=== PATIENT | female | born 1950 | race Caucasian/White ===

== ENCOUNTER 2017-02-17 11:41 | Inpatient (IN) | payer MEDICARE, OTHER ==
--- NOTE | ~2017-02-17 | PUL ---
[address] [place]. [address] NAME: CHRISTIAN AQUINO : 50 STATUS : ADM IN PAT#: [id number] AGE: 67 ADM/REG DATE : 02/17/17 MR#: [id number] REPORT SERV DATE: 02/23/17 DICTATED BY: LÁZARO LORENZANA DATE: 02/23/17 REPORT STATUS : Draft TRANSCRIBED BY: MODL DATE: 02/23/17 PULMONARY FUNCTION TEST PROCEDURE: Nocturnal oximetry study. DESCRIPTION: This is a nocturnal oximetry study performed initially on room air on 02/20/2017 at 11:34 p.m., ending on 02/21/2017 at 05:54 a.m. There was 6 hours 19 minutes and 48 seconds of recording time. The patient started out on room air. However, had to get placed on 4 L/minute of oxygen to keep oxygen saturations up. Average heart rate was 51 with a low of 42 and a high of 63. Average O2 saturation 93.6% with a low of 83%. Time below 88% was 5 minutes 18 seconds. Oxygen desaturation index was only 4.1. IMPRESSION: Abnormal oximetry study showing significant oxygen desaturation with time below 88% greater than 5 minutes, qualifying for nocturnal oxygen. Rule out secondary causes if appropriate. This does not rule out sleep apnea, so this is of concern then this needs to be evaluated as an outpatient with sleep study. 4 L/minute of oxygen was adequate to control the desaturations. CEP/JENNIFER Lázaro Lorenzana DO / [id number] CC: Patrice Tolentino
--- NOTE | ~2017-02-17 | DS ---
Discharge Summary [facility] [address] [place]. [address] NAME: CHRISTIAN AQUINO : 50 STATUS : DIS IN PAT#: [id number] AGE: 67 ADM/REG DATE : 02/17/17 MR#: [id number] REPORT SERV DATE: 02/24/17 DICTATED BY: GARY DEVLIN DATE: 02/23/17 REPORT STATUS : Draft TRANSCRIBED BY: MODL DATE: 02/23/17 ADMISSION DATE: 02/17/2017 DISCHARGE DATE: 02/23/2017 DISCHARGE DIAGNOSES: 1. Hypoxic respiratory failure. 2. Pulmonary hypertension and aortic stenosis. 3. Obstructive sleep apnea on current CPAP therapy nightly. 4. Urinary tract infection, Escherichia coli, treated. 5. Diarrhea, resolving. 6. Morbid obesity. 7. Paroxysmal atrial fibrillation. 8. Hypothyroidism, most recent TSH 5.400. 9. Chronic lymphedema. 10.Hypertension. DISCHARGE MEDICATIONS: Eliquis 5 mg twice a day, Lotensin 40 mg daily, Bumex 1 mg daily, diltiazem ER 300 mg at bedtime, Zetia 10 mg daily, EZFE 200 mg daily, flecainide 100 mg every 12 hours, Flonase nasal spray one to two sprays nasally daily, levothyroxine 112 mcg daily, Singulair 10 mg at bedtime, Pravachol 40 mg daily, albuterol nebulizers twice, Spiriva 18 mcg capsule inhaled daily, Dulera 200/5 two puffs inhaled twice a day, Pulmicort one puff inhaled twice a day, Imodium p.r.n. for diarrhea, Librax p.r.n. for IBS, probiotic [id number] daily, FiberCon tab daily, and hydrocodone APAP 5/325 one tablet every four hours p.r.n. for pain #20 with no refills. HISTORY OF PRESENT ILLNESS: This is a pleasant 67-year-old white female, who originally presented with worsening shortness of breath. Please see initial H and P of Dr. Stephenson. As the patient was admitted to the Hospitalist Service for further evaluation and treatment. She was initially given supportive care with oxygen and nebulizer therapy. Lab work was ordered and followed and she was monitored closely. CONSULTANTS DURING THIS ADMISSION: A nocturnal oximetry study read by surgical assistant certified Dr. Lázaro Lorenzana that was abnormal and showed significant oxygen desaturation. PROCEDURES AND IMAGING DURING THIS ADMISSION: Initial CTA of the chest that showed no evidence of pulmonary embolus, small upper [id number] enlarged left periaortic lymph node measuring 10 mm short axis diameter of uncertain clinical significance, some mildly enlarged pulmonary artery consistent with CT evidence of pulmonary arterial hypertension, and an echocardiogram that showed ejection fraction of 60% with mild aortic stenosis. CONTINUATION OF HOSPITAL COURSE: The patient was initially seen by Hospitalist Dr. Hector Mckinney, where the patient was continued on her supportive care, nebulizers, oxygen, and was also given some more aggressive IV diuresis, which had initially been IV Lasix, and this was changed to IV Bumex. The patient did tolerate this diuresis and was switched over to p.o. Bumex as she continued to diurese. She has problems with chronic lymphedema and her legs were wrapped during this admission as well which seemed to help alleviate some of the Discharge Summary [address] [address] NAME: CHRISTIAN AQUINO : 50 STATUS : DIS IN PAT#: [id number] AGE: 67 ADM/REG DATE : 02/17/17 MR#: [id number] REPORT SERV DATE: 02/24/17 DICTATED BY: GARY DEVLIN DATE: 02/23/17 REPORT STATUS : Draft TRANSCRIBED BY: JENNIFER DATE: 02/23/17 swelling. She began to feel some better and less short of breath, however, with exertion the patient required oxygen and she did have an abnormal overnight oximetry test. As the patient is currently on CPAP therapy, she will need home O2 at discharge and with outpatient pulmonary follow up. She did grow E coli in her urine which was treated with antibiotics. She did have some episodes of diarrhea and did have a C difficile. Stool check which was negative during this admission as well. The patient continued to do well, was able to be mobilized to a chair, and ambulated in the hallway, and was felt safe to discharge home with [facility], and home O2 on 02/23/2017 with the above medication regimen. She has been instructed to follow up with her primary care in four to six weeks. Follow up with the surgical assistant certified in three to four weeks. She has to recheck for TSH through her primary care's office. I have decreased her Cardizem dosage down, given that during this admission, her heart rates have been in the mid 50 range, although asymptomatic, I have titrated her overall Cardizem dosage down, and prescription has been written for this. The patient was in agreement with the plan going forward. Questions were answered extensively at bedside. Please note, greater than 30 minutes was spent on this discharge for medication, teaching, followup planning, and further disposition. JENNY/JENNIFER Gary Devlin NP / [id number] CC: Patrice Tolentino AMY
--- NOTE | ~2017-02-17 | SLEEP ---
[facility] [address] [address] NAME: CHRISTIAN AQUINO : 50 STATUS : ADM IN PAT#: [id number] AGE: 67 ADM/REG DATE : 02/17/17 MR#: [id number] REPORT SERV DATE: 02/21/17 DICTATED BY: LÁZARO LORENZANA DATE: 02/21/17 REPORT STATUS : Draft TRANSCRIBED BY: MODL DATE: 02/21/17 PROCEDURE: Nocturnal oximetry study. DESCRIPTION: This is a nocturnal oximetry study performed on 02/20/2017 starting at 11:34 p.m. ending 02/21/2017 at 5:54 a.m. Total recording time was 6 hours 19 minutes 48 seconds. Average heart rate 51 with a low of 42 and a high of 63. Average oxygen saturation was 93.6% with a low of 83%. The patient was placed on 4 liters of oxygen just before 1:00 a.m. to keep oxygen greater than or equal to 80%. The patient had a time below 88% of 5 minutes 18 seconds. Oxygen desaturation index was less than 5. IMPRESSION: This is an abnormal oximetry study showing desaturation on room air, but the patient was subsequently placed on 4 liters/minute. CEP/JENNIFER Lázaro Lorenzana DO / [id number] CC: Patrice Tolentino AMY
--- NOTE | ~2017-02-17 | HP ---
History And Physical [address] [place]. [address] NAME: CHRISTIAN AQUINO : 50 STATUS : ADM IN PAT#: [id number] AGE: 67 ADM/REG DATE : 02/17/17 MR#: [id number] REPORT SERV DATE: 02/17/17 DICTATED BY: MAGY SHEEHAN DATE: 02/17/17 REPORT STATUS : Draft TRANSCRIBED BY: JENNIFER DATE: 02/17/17 DATE OF ADMISSION: 02/17/2017 CHIEF COMPLAINT: Shortness of breath. HISTORY OF PRESENT ILLNESS: This is a 67-year-old female with medical history of morbid obesity, obstructive sleep apnea, on CPAP at home, mild aortic stenosis, irritable bowel syndrome, and atrial fibrillation, on Eliquis, who presented to the hospital with complaints of worsening shortness of breath. The patient reports that at baseline, she does have intermittent shortness of breath, but able to perform activities of daily living, able to walk around without meaningful shortness of breath. However, in the last one month, she has noticed progressive worsening shortness of breath. In the last couple of weeks, she has become short of breath both on exertion and at rest. There is also associated wheezing and also bilateral lower extremity swelling. The patient also reports significant feeling of excessive weight gain. She notes that she takes her Lasix as prescribed, but notes that her Lasix may not have been working to get rid of the water fluid as effective as it used to be. The patient denies any chest pain, denies any PND, denies any orthopnea, and she denies any palpitations, presyncopal or syncopal episodes. She denies any cough. She denies any fever or chills. She also denies any history of contact with any patient with acute febrile illness. The patient also denies any recent travel, previous DVT, but reports that she has been more sedentary in the last few weeks due to the worsening shortness of breath. PAST MEDICAL HISTORY: 1. Obstructive sleep apnea, on CPAP machine. 2. Hypercholesterolemia. 3. History of murmur likely related to aortic stenosis. 4. Asthma. 5. Hypertension. 6. Atrial fibrillation. 7. Hypothyroidism. 8. Osteoarthritis. PAST SURGICAL HISTORY: 1. Tonsillectomy in 1998. 2. Cholecystectomy in 1999. 3. Right knee arthroscopy in 2004. 4. Bilateral total knee replacement in 2003. 5. Right hip replacement in 2004. ALLERGIES: 1. NSAID. 2. PENICILLIN. 3. CEFACLOR. 4. AUGMENTIN. 5. AZITHROMYCIN. 6. AMOXICILLIN. History And Physical [address] [address] NAME: CHRISTIAN AQUINO : 50 STATUS : ADM IN PAT#: [id number] AGE: 67 ADM/REG DATE : 02/17/17 MR#: [id number] REPORT SERV DATE: 02/17/17 DICTATED BY: MAGY SHEEHAN DATE: 02/17/17 REPORT STATUS : Draft TRANSCRIBED BY: JENNIFER DATE: 02/17/17 MEDICATIONS: 1. Bumex 1 mg p.o. daily. 2. Flecainide 100 mg p.o. every 12 hours. 3. Eliquis 5 mg p.o. b.i.d. 4. Diltiazem extended release 360 mg cap at bedtime. 5. Pravachol 40 mg p.o. daily. 6. Zetia 10 mg p.o. daily. 7. Lotensin 40 mg p.o. daily. 8. Levothyroxine 112 mcg p.o. daily. 9. Singulair 10 mg p.o. daily. 10.Budesonide one puff b.i.d. 11.Albuterol one puff b.i.d. 12.Lorazepam 2 mg p.o. p.r.n. for diarrhea due to IBS. 13.Librax cap p.r.n. for IBS. 14.Probiotic caps one p.o. daily as needed. 15.FiberCon one tab p.o. twice a day. 16.Flonase nasal spray 50 mcg two sprays daily. 17.Iron polysaccharide 22 mcg p.o. daily. SOCIAL HISTORY: Denies smoking cigarettes, drinking alcohol, or illicit drug use, but attached to secondhand smoke exposure. Her smokes heavily in the house. FAMILY HISTORY: History of heart failure in her father and a sister. Mother of CVA. No history of cancer in the family. REVIEW OF SYSTEMS: Twelve-point review of systems conducted, positive findings as per HPI. All other systems essentially negative. PHYSICAL EXAMINATION: VITAL SIGNS: Blood pressure 158/74 mmHg, temperature 98, respiratory rate 30, saturating 93% on 5 L of oxygen. GENERAL: Acute respiratory distress, but able to speak in full sentences. HEENT: Normocephalic, atraumatic. Extraocular muscles intact. Pupils equal, round, and reactive, not pale. Anicteric. NECK: Supple. Distended external jugular veins. Jugular venous pressure unable to be detected likely due to patient's short neck. CHEST: Nontender. Equal expansion. LUNGS: Reduced breath sounds due to patient's body habitus. CARDIOVASCULAR: Irregularly irregular murmur. Normal S1, S2. A systolic ejection murmur, loudest around the right second intercostal space, 3/6 grade. ABDOMEN: Bowel sounds normoactive. Obese. No area of nontender. No palpably enlarged organomegaly. LOWER EXTREMITIES: Bilateral pitting edema with chronic hyperkeratotic changes consistent with venous stasis dermatitis. NEURO: Alert and oriented x3. Cranial nerves 2 through 12 intact. Strength in all History And Physical [address] [address] NAME: CHRISTIAN AQUINO : 50 STATUS : ADM IN [facility]#: [id number] AGE: 67 ADM/REG DATE : 02/17/17 MR#: [id number] REPORT SERV DATE: 02/17/17 DICTATED BY: MAGY SHEEHAN DATE: 02/17/17 REPORT STATUS : Draft TRANSCRIBED BY: MODL DATE: 02/17/17 extremities 03/30. LABORATORY DATA: Chemistry: Serum sodium 142, potassium 3.2, chloride 109, bicarb 31, creatinine is 0.8, BUN 16, glucose 116, calcium 8.2, Mag 2.1, phos 3.4. Total protein 7.3, albumin 3.0, BNP 104.2, troponin less than 0.02. ABG: pH 7.43, pCO2 49, paO2 46.6. Hematology: WBC 9.0, hemoglobin 9.3, hematocrit 33, and platelet 251. MCV 75.5. IMAGING: Chest x-ray shows prominence of vascular congestions marking with atelectasis changes in bilateral lower lung field with trace of bilateral pleural effusion more prominent on the left according to my interpretation. Official report pending. ASSESSMENT: 1. Acute hypoxic respiratory failure. The patient presented with worsening shortness of breath. ABG shows a paO2 of 46.6, requiring 5 L of oxygen to maintain saturation at the time of my evaluation. Definitive etiology is unclear at this time. However, I am considering multifactorial effect of possible acute decompensated heart failure given significant evidence of bilateral lower extremities and chest x-ray with prominent vascular congestion. BNP of 104 may be falsely normal due to morbid obesity. Other factors include uncontrolled sleep apnea. I will also rule out a pulmonary embolus in this patient. We will have significant sedentary lifestyle. I will obtain a CTA to rule out a pulmonary embolus. 2. I will obtain an echocardiogram to re-evaluate aortic valve to rule out worsening valvular dysfunction as a possible etiology of hypoxia. 3. I will also start the patient on IV Lasix for diuresis. The patient had received Solu- Medrol for possible asthma exacerbation given evidence of wheezing on presentation. I will continue Solu-Medrol at this time as an acute asthma exacerbation may also be contributing to hypoxic respiratory failure. 4. Atrial fibrillation, ventricular rate of 69 beats per minute, currently in sinus rhythm. I will continue patient's anticoagulation with apixaban. 5. Obstructive sleep apnea, on continuous positive airway pressure. I will continue the patient on continuous positive airway pressure machine after a continuous positive airway pressure treatment throughout the course of this admission. 6. Hypertension. We will continue patient's home dose of antihypertensives. 7. Hypothyroidism. We will recommence patient's levothyroxine. 8. Admission disposition: Cardiac tele. 9. Code status: Full code. 10.Deep vein thrombosis prophylaxis for anticoagulation contraindicated. The patient is already on Eliquis. 11.Microcytic anemia. The patient has a hemoglobin of 9.3 with an MCV of 75.5, concerning for iron deficiency anemia. We will obtain an iron study. Of note, the patient reports no melena or blood loss from any orifice. The patient reports no evidence of bleeding or no melena or hematochezia or hematemesis. Etiology of iron deficiency anemia unclear at this time. We will obtain patient's record of prior colonoscopy and review further. History And Physical [address] [address] NAME: CHRISTIAN AQUINO : 50 STATUS : ADM IN PAT#: [id number] AGE: 67 ADM/REG DATE : 02/17/17 MR#: [id number] REPORT SERV DATE: 02/17/17 DICTATED BY: MAGY SHEEHAN DATE: 02/17/17 REPORT STATUS : Draft TRANSCRIBED BY: MODL DATE: 02/17/17 ANGIEO/INDIRAL Magy Sheehan MD / [id number] CC: Patrice Park AMY David Dodson, M.D.
[~2017-02-17 11:41] MED LIST: ACCUNEB INH; ASMANEX 30110 MCG IN; ASMANEX INH; CLARIT10 PO; FIBERCON PO; FLONASE NAS; IMOD PO; LEVOTHROID112 MCG PO; LEVOTHYROXIN112 MCG PO; LIBRAX PO; LOTE40 PO; LOTENSIN HCT1 TA2 PO; NORCO1 TA1 PO; PRAV10 PO; PRAVACHOL40 MG PO; PROBIOTIC PO; PULMICORT90 MCG INH; SALINE NASAL SPRAY; SINGULAIR1 PO; ZETIA PO
[2017-02-17] MEDS ORDERED: FLECAINIDE100 MG PO (12:28)
[2017-02-17] MEDS ORDERED: ELIQUIS 5 MG TAB5 MG PO (12:28)
[2017-02-17] MEDS ORDERED: BUM1 PO (12:28)
[2017-02-17] MEDS ORDERED: ZETIA PO (12:29)
[2017-02-17] MEDS ORDERED: PRAVACHOL40 MG PO (12:29)
[2017-02-17] MEDS ORDERED: TAZTIA X3 PO (12:29)
[2017-02-17] MEDS ORDERED: LEVOTHYROXIN112 MCG PO (12:30)
[2017-02-17] MEDS ORDERED: SINGULAIR1 PO (12:30)
[2017-02-17] MEDS ORDERED: LOTE40 PO (12:30)
[2017-02-17] MEDS ORDERED: PULMICORT90 MCG INH (12:31)
[2017-02-17] MEDS ORDERED: ALBUTEROL0.083 % INH (12:33)
[2017-02-17] MEDS ORDERED: IMOD PO (12:33)
[2017-02-17] MEDS ORDERED: PROBIOTIC PO (12:35)
[2017-02-17] MEDS ORDERED: LIBRAX PO (12:35)
[2017-02-17] MEDS ORDERED: FIBERCON PO (12:36)
[2017-02-17] MEDS ORDERED: FLONASE NAS (12:36)
[2017-02-17] MEDS ORDERED: EZFE 200200 MG PO (12:36)
[2017-02-17 13:13] LABS: BASOPHILS 0.2 %; BASOPHILS ABSOLUTE 0.02 10/3/uL (0.0-0.16); EOSINOPHILS 1.4 %; EOSINOPHILS ABSOLUTE 0.13 10/3/uL (0.0-0.53); ER CBC TAT 0 Hrs 08 Mins; HEMOGLOBIN 9.3 g/dL (12.0-16.0); IMMATURE GRANULOCYTES 0.3 %; IMMATURE GRANULOCYTES ABSOLUTE 0.03 10/3/uL (0.0-0.11); LYMPHOCYTES 11.5 %; LYMPHOCYTES ABSOLUTE 1.03 10/3/uL (0.67-4.30); MANUAL DIFF NO %; MEAN CORPUS HGB CONC 28.2 g/dL (32.0-36.0); MEAN CORPUSCULAR HEMOGLOB 21.3 pg (26.0-34.0); MEAN CORPUSCULAR VOLUME 75.5 fL (80-100); MEAN PLATELET VOLUME 9.4 fL (9.2-13.0); MONOCYTES 11.1 %; NEUTROPHILS 75.5 %; NEUTROPHILS ABSOLUTE 6.77 10/3/uL (2.02-8.40); PLATELET COUNT 251 10/3/uL (150-400); RBC DISTRIBUTION WIDTH 18.2 % (12.0-16.0); RED CELL COUNT 4.37 10/6/uL (4.0-5.6)
[2017-02-17 13:24] LABS: INTERNATIONAL NORMAL RATI 1.5 UNITS (-); PROTIME (NOT ORD) 17.8 SEC (12.0-14.5)
[2017-02-17 13:29] LABS: TROPONIN I <0.02 NG/ML (<0.05)
[2017-02-17 15:26] LABS: INSTRUMENT SERIAL # 8087; pH 7.43 (7.37-7.43)
[2017-02-17 15:27] LABS: ALLENS TEST Pos; BE (BASE EXCESS) 6.9 MEQ/L (0 +/- 2.5); CARBOXYHEMOGLOBIN 2.3 % (0-3); HCO3 (ACTUAL BICARBONATE) 32.1 MEQ/L (23-27); HEMOBLOGIN CONTENT 10.2 G/DL (12-16); METHEMOGLOBIN 0.3 % (0-3); O2 CONTENT 11.3 VOL% (18-24); PCO2 (CO2 TENSION) 49 MMHG (35-45); PO2 (O2 TENSION) 47 MMHG (79-93); SAMPLE Arterial
[2017-02-17 15:35] LABS: A/G RATIO 0.7 (0.7-1.9); ALKALINE PHOSPHATASE 100 U/L (45-117); BUN (BLOOD UREA NITROGEN) 16 MG/DL (6-23); CALCIUM, SERUM 8.2 MG/DL (8.5-10.4); CHLORIDE, SERUM 101 MMOL/L (96-112); CO2 (CARBON DIOXIDE) 31 MMOL/L (24-34); GFR AFRICAN AMERICAN 88 ML/MIN (>=60); GFR NON AFRICAN AMERICAN 76 ML/MIN (>=60); GLOBULIN 4.3 G/DL (2.5-4.1); GLUCOSE, SERUM 116 MG/DL (60-99); PHOSPHORUS, SERUM 3.4 MG/DL (2.5-4.5); POTASSIUM, SERUM 3.2 MMOL/L (3.5-5.3); SGOT(AST) 16 U/L (5-40); SGPT(ALT) 14 U/L (5-65); SODIUM, SERUM 142 MMOL/L (135-148); TOTAL BILIRUBIN 0.5 MG/DL (0-1.2); TOTAL PROTEIN 7.3 G/DL (6.0-8.5)
[2017-02-17 18:18] LABS: BASOPHILS 0.1 %; BASOPHILS ABSOLUTE 0.01 10/3/uL (0.0-0.16); EOSINOPHILS 0 %; HEMATOCRIT 32.8 % (36.0-48.0); HEMOGLOBIN 9.2 g/dL (12.0-16.0); IMMATURE GRANULOCYTES 0.5 %; IMMATURE GRANULOCYTES ABSOLUTE 0.04 10/3/uL (0.0-0.11); LYMPHOCYTES 3.6 %; LYMPHOCYTES ABSOLUTE 0.27 10/3/uL (0.67-4.30); MANUAL DIFF NO %; MEAN CORPUSCULAR HEMOGLOB 21.1 pg (26.0-34.0); MEAN CORPUSCULAR VOLUME 75.4 fL (80-100); MEAN PLATELET VOLUME 9.2 fL (9.2-13.0); MONOCYTES 0.9 %; MONOCYTES ABSOLUTE 0.07 10/3/uL (0.21-1.20); NEUTROPHILS 94.9 %; NEUTROPHILS ABSOLUTE 7.01 10/3/uL (2.02-8.40); PLATELET COUNT 226 10/3/uL (150-400); RBC DISTRIBUTION WIDTH 18.1 % (12.0-16.0); RED CELL COUNT 4.35 10/6/uL (4.0-5.6); WHITE BLOOD CELLS 7.4 10/3/uL (4.5-10.5)
[2017-02-17 19:14] LABS: PROCALCITONIN < 0.05 ng/mL (<0.5)
[2017-02-18 05:29] LABS: BASOPHILS 0 %; EOSINOPHILS 0 %; HEMATOCRIT 29.7 % (36.0-48.0); HEMOGLOBIN 8.3 g/dL (12.0-16.0); IMMATURE GRANULOCYTES 0.3 %; IMMATURE GRANULOCYTES ABSOLUTE 0.01 10/3/uL (0.0-0.11); LYMPHOCYTES ABSOLUTE 0.36 10/3/uL (0.67-4.30); MEAN CORPUS HGB CONC 27.9 g/dL (32.0-36.0); MEAN CORPUSCULAR VOLUME 75.2 fL (80-100); MEAN PLATELET VOLUME 9.4 fL (9.2-13.0); MONOCYTES 1.9 %; MONOCYTES ABSOLUTE 0.07 10/3/uL (0.21-1.20); NEUTROPHILS 87.8 %; NEUTROPHILS ABSOLUTE 3.17 10/3/uL (2.02-8.40); PLATELET COUNT 226 10/3/uL (150-400); RBC DISTRIBUTION WIDTH 18.2 % (12.0-16.0); RED CELL COUNT 3.95 10/6/uL (4.0-5.6)
[2017-02-18 05:32] LABS: MANUAL DIFF NO %; WHITE BLOOD CELLS 3.6 10/3/uL (4.5-10.5)
[2017-02-18 05:40] LABS: ALBUMIN 2.6 G/DL (3.5-5.0); BUN (BLOOD UREA NITROGEN) 17 MG/DL (6-23); CALCIUM, SERUM 7.9 MG/DL (8.5-10.4); CHLORIDE, SERUM 102 MMOL/L (96-112); CO2 (CARBON DIOXIDE) 32 MMOL/L (24-34); CREATININE 0.79 MG/DL (0.55-1.02); GFR AFRICAN AMERICAN 90 ML/MIN (>=60); GFR NON AFRICAN AMERICAN 77 ML/MIN (>=60); PHOSPHORUS, SERUM 3.8 MG/DL (2.5-4.5); POTASSIUM, SERUM 3.8 MMOL/L (3.5-5.3); SODIUM, SERUM 144 MMOL/L (135-148)
[2017-02-18 05:42] LABS: GLUCOSE, SERUM 183 MG/DL (60-99)
[2017-02-18 05:49] LABS: ASCORBIC ACID (UR NOT ORDER) NEG (NEG); BILIRUBIN, URINE NEGATIVE (NEG); KETONE, URINE NEGATIVE (NEG); LEUKOCYTE ESTERASE(NOT OR MOD (NEG); WBC (NOT ORDERED) (RFLEX) 25 (0-5)
[2017-02-18 13:43] LABS: FERRITIN 52 NG/ML (8-252); IRON BINDING CAPACITY 364 MCG/DL (225-410); IRON, SERUM 10 MCG/DL (35-150)
[2017-02-19 08:56] LABS: A/G RATIO 0.7 (0.7-1.9); ALBUMIN 2.9 G/DL (3.5-5.0); CALCIUM, SERUM 8.4 MG/DL (8.5-10.4); CHLORIDE, SERUM 100 MMOL/L (96-112); CO2 (CARBON DIOXIDE) 36 MMOL/L (24-34); CREATININE 0.69 MG/DL (0.55-1.02); GFR AFRICAN AMERICAN 104 ML/MIN (>=60); GFR NON AFRICAN AMERICAN 90 ML/MIN (>=60); GLOBULIN 3.9 G/DL (2.5-4.1); GLUCOSE, SERUM 205 MG/DL (60-99); POTASSIUM, SERUM 3.8 MMOL/L (3.5-5.3); SGOT(AST) 14 U/L (5-40); SGPT(ALT) 15 U/L (5-65); SODIUM, SERUM 141 MMOL/L (135-148); TOTAL BILIRUBIN 0.3 MG/DL (0-1.2); TOTAL PROTEIN 6.8 G/DL (6.0-8.5)
[2017-02-19 08:58] LABS: ALKALINE PHOSPHATASE 81 U/L (45-117); BUN (BLOOD UREA NITROGEN) 24 MG/DL (6-23)
[2017-02-21 05:30] LABS: BASOPHILS 0 %; EOSINOPHILS 0.1 %; EOSINOPHILS ABSOLUTE 0.01 10/3/uL (0.0-0.53); HEMATOCRIT 31.9 % (36.0-48.0); HEMOGLOBIN 9.1 g/dL (12.0-16.0); IMMATURE GRANULOCYTES 0.4 %; IMMATURE GRANULOCYTES ABSOLUTE 0.03 10/3/uL (0.0-0.11); LYMPHOCYTES 26.1 %; LYMPHOCYTES ABSOLUTE 1.84 10/3/uL (0.67-4.30); MEAN CORPUS HGB CONC 28.5 g/dL (32.0-36.0); MEAN CORPUSCULAR HEMOGLOB 21.7 pg (26.0-34.0); MEAN CORPUSCULAR VOLUME 76.1 fL (80-100); MEAN PLATELET VOLUME 9.4 fL (9.2-13.0); MONOCYTES 7.4 %; MONOCYTES ABSOLUTE 0.52 10/3/uL (0.21-1.20); NEUTROPHILS ABSOLUTE 4.64 10/3/uL (2.02-8.40); PLATELET COUNT 229 10/3/uL (150-400); RBC DISTRIBUTION WIDTH 18.6 % (12.0-16.0); RED CELL COUNT 4.19 10/6/uL (4.0-5.6)
[2017-02-21 05:32] LABS: MANUAL DIFF NO %
[2017-02-21 05:49] LABS: BUN (BLOOD UREA NITROGEN) 25 MG/DL (6-23); CHLORIDE, SERUM 99 MMOL/L (96-112); CO2 (CARBON DIOXIDE) 32 MMOL/L (24-34); CREATININE 0.72 MG/DL (0.55-1.02); GFR AFRICAN AMERICAN 100 ML/MIN (>=60); GFR NON AFRICAN AMERICAN 87 ML/MIN (>=60); SODIUM, SERUM 137 MMOL/L (135-148)
[2017-02-21 05:50] LABS: CALCIUM, SERUM 8.1 MG/DL (8.5-10.4); GLUCOSE, SERUM 120 MG/DL (60-99); POTASSIUM, SERUM 4.3 MMOL/L (3.5-5.3)
[2017-02-23] MEDS ORDERED: CARTIA XT300 MG/24 PO (15:49)
[2017-02-23] MEDS ORDERED: SPIRIVA INH (15:52)
[2017-02-23] MEDS ORDERED: DULERA 200 MCG/13 GM INH (15:53)
== END 2017-02-23 16:54 | disposition home health service (06) | DRG 189 ==
LOC: ER 11:41 → 6NO 15:46
PROVIDERS: Emergency Medicine; Hospitalist; Internal Medicine; Nurse Practitioner Family
DX: J96.01 Acute respiratory failure with hypoxia (principal); I50.31 Acute diastolic (congestive) heart failure; I27.2 Other secondary pulmonary hypertension; Z68.43 Body mass index [BMI] 50.0-59.9, adult; J45.901 Unspecified asthma with (acute) exacerbation; E66.01 Morbid (severe) obesity due to excess calories; I48.0 Paroxysmal atrial fibrillation; N39.0 Urinary tract infection, site not specified; G47.33 Obstructive sleep apnea (adult) (pediatric); E78.00 Pure hypercholesterolemia, unspecified; M19.90 Unspecified osteoarthritis, unspecified site; I35.0 Nonrheumatic aortic (valve) stenosis; E03.9 Hypothyroidism, unspecified; D50.9 Iron deficiency anemia, unspecified; I89.0 Lymphedema, not elsewhere classified; B96.20 Unspecified Escherichia coli [E. coli] as the cause of diseases classified elsewhere; K58.0 Irritable bowel syndrome with diarrhea; Z90.49 Acquired absence of other specified parts of digestive tract; Z96.653 Presence of artificial knee joint, bilateral; Z96.641 Presence of right artificial hip joint; Z88.0 Allergy status to penicillin; Z88.6 Allergy status to analgesic agent; Z88.1 Allergy status to other antibiotic agents; Z82.3 Family history of stroke; Z77.22 Contact with and (suspected) exposure to environmental tobacco smoke (acute) (chronic)
CPT/HCPCS: 36600; 71010; 71275; 80048; 80053; 80069; 81001; 82728; 82805; 83540; 83550; 83735; 83880; 84132; 84145; 84439; 84443; 84484; 85025; 85610; 87040; 87077; 87086; 87186; 87493; 87493-59; 93005; 94640; 94667; 94668; 94762; 96374; 96375; 97110-GP; 97116-GP; 97161-GP; 99285; A9270-GY; C8929; G8978-CJ-GP; G8979-CI-GP; J1750; J1940; J2920; J2930; Q9957; Q9967